=== PATIENT | female | born 1975 | race Caucasian/White ===

== ENCOUNTER → 2021-04-11 04:16 | Outpatient (CLI) | payer OTHER, SELFPAY ==
[2021-04-11 17:37] LABS: SARS-CoV-2 RNA PCR Positive
[2021-04-11 18:44] LABS: Influenza Control Positive
== END ==
PROVIDERS: PCP Internal Medicine; Visit Provider Internal Medicine
DX: U07.1 COVID-19 (principal)
CPT/HCPCS: 87804; C9803; U0003; U0005

== ENCOUNTER 2022-12-18 05:49 | Day surgery (SDC) | payer OTHER, SELFPAY ==
[2022-12-09 14:03] VITALS: BMI 24.5
--- NOTE | 2022-12-17 10:46 | WPDANESEPPF ---
Anes - Initial Pre Proc Eval Procedure: Operation Date: 12/18/22 07:30 Proposed Procedures p Diagnostic Colonoscopy - Rao Dalal MD Date/Time: 12/17/22 10:46 Surgeon: Rao Dalal MD Pre Op Diagnosis: Diarrhea Patient Data Age: 47 Gender: F Height: 1.73 m Weight: 73 kg Allergies Allergy/AdvReac Type Severity Reaction Status Date / Time codeine Allergy Severe Swelling Verified 12/18/22 06:19 of Lip/Tongue/Throat rivaroxaban Allergy Severe Joint Pain Verified 12/18/22 06:19 Home Medications Medication Instructions Recorded Confirmed Type estradiol 1 mg tablet 0.5 mg PO DAILY 04/10/22 12/18/22 History cholecalciferol (vitamin D3) 125 125 mcg PO DAILY 11/13/22 12/18/22 History mcg (5,000 unit) capsule cholestyramine (with sugar) 4 gram 4 g PO TID #378 grams 11/20/22 12/18/22 Rx oral powder sodium,potassium,mag sulfates 17.5 See Rx Instructions PO .COMPLEX 12/16/22 Rx gram-3.13 gram-1.6 gram oral soln #354 mL (Suprep Bowel Prep Kit) metoprolol succinate 25 mg See Rx Instructions .Route 12/17/22 12/18/22 Rx tablet,extended release 24 hr .COMPLEX #30 tabs Patient hx anesthesia problems: none Family hx anesthesia problems: none Results Review: All pre-operative results and documents have been reviewed as part of the pre-operative evaluation. 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 Shafer, date unknown History of bunionectomy Family History Family History Mother Hypertension Family history of diabetes mellitus in first degree relative Sibling Family history of diabetes mellitus in first degree relative Social History Social History Smoking packs per day: 0.15 Smoking cigarettes per day: 3.0 Years smoked: 20 Smoking pack-years: 3.00 Smoking status: Never smoker Tobacco type: cigarettes Smoking end date: 12/27/12 Alcohol intake: current Alcohol use details: 1-2 drinks nightly Substance use: never Substance use type: does not use Lack of Transportation: No Lack of Food: Never True Current Housing: I Have Housing Concerned About Future Housing: No Difficulty Paying Gas/Electric Bills: No Difficulty Paying for Meds: No Currently Unemployed: No Education: High School Diploma/GED Difficulty w/ Childcare or Family Care: No Living arrangements: with family Occupation/Education: occupation 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[employer] Gender identity (if verbalized by the patient): Female Spiritual care concerns: No Anes - Eval Final PreProcedure Day of Procedure 12/17/22 10:46 Patient weight: normal Heart: regular rate and rhythm Lungs: clear to auscultation and normal air movement Airway: Mallampati scale class II Neurological: alert and oriented Last oral intake: >/= 8 hours ASA classification: III Emergent: no Anesthetic plan: proceed Anesthesia type and monitoring: general GIVS and standard monitoring Results Review: All pre-operative results and documents have been reviewed as part of the pre-operative evaluation. Informed Consent: The patient's anesthetic plan and its attendant risks and benefits were discussed with the patient/family/POA. Questions were solicited and answers provided to the satisfaction of the patient/family/POA.
[2022-12-18 06:21] VITALS: BP 140/98; PULSE 68; RESP 14; TEMP 36.8; O2SAT 99
[2022-12-18] MEDS: LACTATED RINGERS 1,000 ML 150 ML IV CONT (06:31)
--- NOTE | 2022-12-18 07:32 | PM.HPGS ---
History of Present Illness History of Present Illness Consent: Risks, benefits, and alternatives have been discussed and questions answered. Patient agrees to proceed with procedure. Chief complaint: Neoplasia screening Narrative: Desiree Haney is a 47 year old female Presents for screening colonoscopy. Patient has never had a colonoscopy. Her family history is noncontributory. She desires neoplasia screening. Patient she has had loose stools with mucus in them over the last 10 weeks. No specific precipitating event caused this. She has had no weight loss. She did try a fiber supplement briefly for 1 week with no change in symptoms. Patient presents today for screening Review of Systems Review of Systems: systems noncontributory. 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 Shafer, date unknown History of bunionectomy Family History Family History Mother Hypertension Family history of diabetes mellitus in first degree relative Sibling Family history of diabetes mellitus in first degree relative Social History Social History Smoking packs per day: 0.15 Smoking cigarettes per day: 3.0 Years smoked: 20 Smoking pack-years: 3.00 Smoking status: Never smoker Tobacco type: cigarettes Smoking end date: 12/27/12 Alcohol intake: current Alcohol use details: 1-2 drinks nightly Substance use: never Substance use type: does not use Lack of Transportation: No Lack of Food: Never True Current Housing: I Have Housing Concerned About Future Housing: No Difficulty Paying Gas/Electric Bills: No Difficulty Paying for Meds: No Currently Unemployed: No Education: High School Diploma/GED Difficulty w/ Childcare or Family Care: No Living arrangements: with family Occupation/Education: occupation 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[employer] Gender identity (if verbalized by the patient): Female Spiritual care concerns: No Meds Home Medications and Allergies Home Medications Medication Instructions Recorded Confirmed Type estradiol 1 mg tablet 0.5 mg PO DAILY 04/10/22 12/18/22 History cholecalciferol (vitamin D3) 125 125 mcg PO DAILY 11/13/22 12/18/22 History mcg (5,000 unit) capsule cholestyramine (with sugar) 4 gram 4 g PO TID #378 grams 11/20/22 12/18/22 Rx oral powder sodium,potassium,mag sulfates 17.5 See Rx Instructions PO .COMPLEX 12/16/22 Rx gram-3.13 gram-1.6 gram oral soln #354 mL (Suprep Bowel Prep Kit) metoprolol succinate 25 mg See Rx Instructions .Route 12/17/22 12/18/22 Rx tablet,extended release 24 hr .COMPLEX #30 tabs Allergies Allergy/AdvReac Type Severity Reaction Status Date / Time codeine Allergy Severe Swelling Verified 12/18/22 06:19 of Lip/Tongue/Throat rivaroxaban Allergy Severe Joint Pain Verified 12/18/22 06:19 Vital Signs Vital Signs - 24 hr 12/18/22 06:21 Temperature 98.2 F Pulse Rate 68 Respiratory Rate 14 Blood Pressure 140/98 H Pulse Oximetry 99 Oxygen Delivery Room Air Exam Narrative: Physical exam reveals patient to be alert. Vital signs stable. HEENT exam is unremarkable. Patient is anicteric. Lungs are clear to auscultation and percussion. Heart is without murmur or extra sounds. Abdomen bowel sounds are present soft nontender with no organomegaly. Digital external rectal exam is normal. Assessment and Plan Assessment and plan (1) Encounter for screening colonoscopy: Code(s): Z12.11 - Encou
[2022-12-18 08:05] VITALS: BP 125/82; PULSE 77; RESP 16; O2SAT 99
[2022-12-18 08:15] VITALS: BP 106/89; PULSE 75; RESP 16; O2SAT 99
[2022-12-18 08:25] VITALS: BP 126/82; PULSE 58; RESP 16; O2SAT 100
--- NOTE | 2022-12-18 12:33 | WPDANESPN ---
Anes - Prog Note Post-Op Date/Time: 12/18/22 12:33 Cardiovascular status: normal Respiratory status: normal Airway patency: baseline Mental status: baseline Post-Op hydration status: normal Vital Signs: Last Vital Signs Temp 36.8 C 12/18/22 06:21 Pulse 58 L 12/18/22 08:25 Resp 16 12/18/22 08:25 BP 126/82 12/18/22 08:25 Pulse Ox 100 12/18/22 08:25 O2 Del Method Room Air 12/18/22 08:25 Pain Score (VAS): 0 I/O: Intake & Output 12/17/22 12/18/22 12/18/22 23:59 07:59 15:59 Intake Total 700 100 Balance 700 100 Post-procedural complaints: none Patient Feedback: Patient satisfied with anesthetic care. Other Findings: Patient vital signs back to baseline. Patient denies nausea and vomiting. Patient's pain under control. Patient OK for discharge.
== END 2022-12-18 08:35 | disposition home or self-care (01) ==
PROVIDERS: PCP Nurse Practitioner Family; Visit Provider Internal Medicine Gastroenterology
PROC: 0DJD8ZZ Inspection of Lower Intestinal Tract, Via Natural or Artificial Opening Endoscopic (ICD-10-PCS; CPT 45378; principal; 2022-12-18 07:30)
DX: Z12.11 Encounter for screening for malignant neoplasm of colon (principal); R19.7 Diarrhea, unspecified; K64.8 Other hemorrhoids
CPT/HCPCS: 45380

== ENCOUNTER 2022-12-18 08:00 | Outpatient (NON) | payer OTHER, SELFPAY | END 2022-12-18 08:01 | disposition home or self-care (01) | PROVIDERS: PCP Nurse Practitioner Family; Visit Provider Internal Medicine Gastroenterology | DX: Z12.11 Encounter for screening for malignant neoplasm of colon (principal) | CPT/HCPCS: 88305 ==

== ENCOUNTER 2024-05-09 07:44 | Outpatient (CLI) | payer OTHER, SELFPAY ==
--- NOTE | ~2024-05-09 | XR_ITS ---
EXAMINATION: XR knee RT 3V DATE: 05/09/2024 08:04 INDICATION: Right knee pain. TECHNIQUE: 3 views of right knee were obtained. COMPARISON: None. FINDINGS: Alignment is normal. No fracture. There is mild osteoarthritis of medial and patellofemoral compartments. No knee joint effusion. IMPRESSION: 1. Mild right knee osteoarthritis. 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
== END 2024-05-09 07:45 | disposition home or self-care (01) ==
PROVIDERS: PCP Nurse Practitioner Family; Visit Provider Physician Assistant Surgical
DX: M17.11 Unilateral primary osteoarthritis, right knee (principal)
CPT/HCPCS: 73562

== ENCOUNTER 2024-05-30 08:05 | Outpatient (CLI) | payer OTHER, SELFPAY ==
--- NOTE | ~2024-05-30 | MR_ITS ---
EXAMINATION: MR knee RT wo con DATE: 05/30/2024 08:33 INDICATION: Right knee pain TECHNIQUE: Magnetic resonance imaging (MRI) of the right knee was performed without intravenous contr ast. Sequences included coronal PD-weighted FSE, coronal PD-weighted FS FSE, sagittal T2-weighted FS E, sagittal PD-weighted FS FSE and axial PD weighted fat saturated FSE. COMPARISON: None. FINDINGS: Medial compartment: Medial meniscus is normal. Partial thickness chondral fissuring which appears to involve greater than 50% the cartilage thickness but without degenerative subchondral changes at the anterior weightbeari ng medial femoral condyle. Lateral compartment: Lateral meniscus is normal. Articular cartilage is normal. Patellofemoral compartment: There is extensive chondral fissuring along the patella which involves greater than 50% the cartilage thickness at the apical ridge and lateral facet performed with tiny focus of minimal underlying suba rticular edema-like signal change. There is partial thickness chondral ulceration and fissuring witho ut degenerative subchondral changes at the inferior aspect of the medial patellar facet. Ligaments and tendons: Anterior and posterior cruciate ligaments are normal. The medial collateral ligament and fibular salma ateral ligament complex are normal. The extensor mechanism is normal. The visualized medial and later al hamstring tendons as well as the iliotibial band are normal. Fluid: Physiologic amount of fluid in the joint space. No loose osteochondral bodies identified. Osseous/other: Bone alignment is normal. No acute fracture. There is a focal small region of cortical depression wit h fissuring but no depression of the overlying articular cartilage at the cephalad aspect of the late ral patellar facet which suggests possible sequela of a chronic healed impaction fracture. IMPRESSION: 1. 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 Reviewed, dictated and finalized at location B. O NURSE IMPRESSION: 1. 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
== END 2024-05-30 08:06 | disposition home or self-care (01) ==
LOC: MICIMG 08:06
PROVIDERS: PCP Nurse Practitioner Family; Visit Provider Physician Assistant Surgical
DX: M17.11 Unilateral primary osteoarthritis, right knee (principal); M94.261 Chondromalacia, right knee
CPT/HCPCS: 73721

== ENCOUNTER 2024-06-27 15:36 | Emergency (ER) | payer OTHER, SELFPAY ==
[2024-06-27 15:49] VITALS: BP 158/97; PULSE 70; RESP 16; TEMP 36.9; O2SAT 99
--- NOTE | 2024-06-27 15:57 | ED_ITS ---
HPI - URI/Sore Throat General Chief Complaint: Upper Respiratory Infection Stated Complaint: sore throat,drainage Time Seen by Provider: 06/27/24 15:57 Source: patient, RN notes reviewed and old records reviewed Mode of arrival: ambulatory Limitations: no limitations History of Present Illness HPI Narrative: Patient presents with complaints of sore throat or runny nose. Symptoms have been present for 2 days, got worse yesterday. She has been taking Mucinex and ibuprofen for her symptoms with moderate relief. Related Data Home Medications ?Medication ?Instructions ?Recorded ?Confirmed ?Last Taken ?Type estradiol 1 mg tablet 1 mg PO DAILY 09/16/23 06/01/24 Unknown History Allergies Allergy/AdvReac Type Severity Reaction Status Date / Time codeine Allergy Severe Swelling Verified 06/27/24 15:59 of Lip/Tongue/Throat rivaroxaban Allergy Severe Joint Pain Verified 06/27/24 15:59 lisinopril AdvReac Intermediate Cough Verified 06/27/24 15:59 Review of Systems Review of Systems: All systems reviewed & are unremarkable except as noted in HPI and below Constitutional: Constitutional: Reports no additional constitutional complaints ENT: Reports system reviewed and no additional complaints, except as documented, Reports nasal congestion, Reports nasal discharge and Reports sore throat Cardiovascular: Cardiovascular: Reports no additional cardiovascular complaints Respiratory: Respiratory: Reports no additional respiratory complaints Gastrointestinal: Gastrointestinal: Reports no additional gastrointestinal complaints [facility] Past Medical History Medical History (Reviewed 06/01/24 @ 12:01 by Natividad Saunders [facility]) Hypertension Elevated LFTs Menopausal symptom Well adult health check Osteoarthritis of left knee 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 Shafer, date unknown Family History Family History Mother Hypertension Family history of diabetes mellitus in first degree relative Sibling Family history of diabetes mellitus in first degree relative Social History Social History Smoking packs per day: 0.15 Smoking cigarettes per day: 3.0 Years smoked: 20 Smoking pack-years: 3.00 Smoking status: Former smoker Tobacco type: cigarettes Smoking end date: 12/27/12 Alcohol intake: current Alcohol use details: 1-2 drinks nightly Substance use: never Substance use type: does not use Current Housing: Decline to Answer Concerned About Future Housing: Decline to Answer Difficulty Paying Gas/Electric Bills: Decline to Answer Difficulty Paying for Meds: Decline to Answer Currently Unemployed: Decline to Answer Education: Decline to Answer Difficulty w/ Childcare or Family Care: Decline to Answer Living arrangements: with family Occupation/Education: occupation 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 There is no relevant family history pertinent to the patient complaint. Exam Const: General: cooperative, no acute distress, alert and awake Orientation/consciousness: oriented to person, oriented to place and oriented to time HENMT: Head: normal to inspection Ears: TM's normal bilaterally Mouth: Yes moist mucous membranes Throat: posterior oropharynx normal Resp: Effort & Inspection: normal respiratory effort and able to speak in complete sentences Auscultation: clear to auscultation bilaterally, no crackles, no rales, no rhonchi and no wheezes Cardio: Palpation: normal PMI Rate: regular rate Rhythm: regular rhythm Heart sounds: S1 normal heart sound present and S2 normal heart sound present Neuro: General: oriented to person, oriented to place and oriented to time Cranial nerves: Yes CN's II-XII intact bilaterally Psych: Appearance: grossly normal Thought process: Normal thought process present Insight: Good insight present (Psych) Judgement: Good judgement present (Psych) Course Course Level of Care: Express Care Visit Vital Signs Vital signs: Vital Signs Temperature 98.5 F 06/27/24 15:49 Pulse Rate 70 06/27/24 15:49 Respiratory Rate 16 06/27/24 15:49 Blood Pressure 158/97 H 06/27/24 15:49 Pulse Oximetry 99 06/27/24 15:49 Oxygen Delivery Room Air 06/27/24 15:49 Temperature 98.5 F 06/27/24 15:49 Pulse Rate 70 06/27/24 15:49 Respiratory Rate 16 06/27/24 15:49 Blood Pressure 158/97 H 06/27/24 15:49 Pulse Oximetry 99 06/27/24 15:49 Oxygen Delivery Room Air 06/27/24 15:49 Reviewed MDM - URI/Sore Throat MDM Narrative Medical decision making narrative: Reassuring physical exam. Negative COVID, negative flu, negative strep. Supportive care measures discussed. Discharge instructions reviewed with patient, as well as provided in writing per nursing staff. The instructions also include specific and strict return/GO TO THE ER as well as f/u information. All questions have been answered, and the patient deny any further questions with discharge and discharge plan. Some parts of this dictation were generated by voice recognition software and may contain typographical and/or grammatical inaccuracies. Differential Diagnosis Differential diagnosis: Likely upper respiratory infection, otitis media, viral infection, influenza and pharyngitis Medical Records Attestation: I reviewed the patient's medical records. Lab Data Attestation: I reviewed the patient's lab results. Discharge Plan Discharge Clinical Impression: Upper respiratory infection Qualifiers: URI type: unspecified viral URI Qualified Code(s): J06.9 - Acute upper respiratory infection, unspecified Patient Disposition: Home, Self-Care Condition: Stable Instructions: Antibiotic Form, Cold Symptoms (ED) Additional Instructions: Continue [id number] medications to treat symptoms. Follow package instructions. Emergency department for new or worsening symptoms. Follow-up with primary care provider Patient Language: Japanese Prescriptions: No Action estradiol 1 mg tablet 1 mg PO DAILY naproxen 500 mg tablet 500 mg PO BID Qty: 60 2RF Rx Instructions: Stop motrin metoprolol succinate 50 mg tablet extended release 24 hr 50 mg PO DAILY Qty: 90 1RF Follow-up/Referrals: Maria Luz Painting APRN [Primary Care Provider] - 2 Weeks Stand Alone Forms: Work/School Release IP Time of Disposition: 16:24
[2024-06-27 16:14] LABS: EDCOVIDSCREEN Negative (Negative); EDINFLUASCREEN Negative (Negative); EDINFLUBSCREEN Negative (Negative); EDSTREPNEGPOS1 Positive (Negative)
== END 2024-06-27 16:25 | disposition home or self-care (01) ==
PROVIDERS: Emergency Provider Nurse Practitioner Family; PCP Nurse Practitioner Family
DX: J06.9 Acute upper respiratory infection, unspecified (principal); Z20.822 Contact with and (suspected) exposure to COVID-19; I10 Essential (primary) hypertension; M17.12 Unilateral primary osteoarthritis, left knee; Z87.891 Personal history of nicotine dependence
CPT/HCPCS: 87081; 87426; 87804; 87880; 99213; G0463